=== PATIENT | female | born 1995 | race Two or more races ===

== ENCOUNTER 2024-05-10 08:01 | Emergency (ER) | payer MEDICAID, SELFPAY ==
[2024-05-10 08:02] VITALS: BMI 40.7
[2024-05-10 08:14] VITALS: BP 134/89; PULSE 102; RESP 19; TEMP 37.5; O2SAT 99
--- NOTE | 2024-05-10 08:16 | EDNOTE_ITS ---
ED SOB =RME/HPI General Chief Complaint: Shortness of Breath/Dyspnea Stated Complaint: PAIN WITH BREATHING TODAY Time Seen by Provider: 05/10/24 08:15 Source: patient Arrival date/time: 05/10/24 08:01 28-year-old female with a history of asthma presents to the emergency room with a chief complaint of cough, congestion, shortness of breath x 1 day Mode of arrival: ambulatory Limitations: no limitations Related Data Home Medications ?Medication ?Instructions ?Recorded ?Confirmed norethindrone acetate 1.5 1 tab PO QDAY 07/17/2307/16 mg-ethinyl estradiol 30 mcg tablet (Alex) Previous Rx's ?Medication ?Instructions ?Recorded albuterol sulfate 90 mcg/actuation 2 puff inhalation Q ID PRN 07/31/18 aerosol inhaler (Ventolin HFA) shortness of breath or wheezing #8.5 grams albuterol sulfate 90 mcg/actuation 2 puff inhalation Q ID PRN 06/16/20 aerosol inhaler shortness of breath or wheez ing #18 grams cetirizine 10 mg capsule (All Day 10 mg PO QDAY PRN al lergy symptoms 06/16/20 Allergy (cetirizine)) #30 caps sodium chloride 0.65 % nasal spray 2 spray intranasal QID #60 mL 06/16/20 aerosol (Saline Nasal) ondansetron 4 mg disintegrating 4 mg PO Q8H PRN nausea and 04/23/23 tablet vomiting #30 tabs albuterol sulfate 90 mcg/actuation 2 puff inhalation Q 6H PRN 01/08/24 aerosol inhaler (Ventolin HFA) shortness of breath or wheezing #8.5 grams promethazine-DM 6.25 mg-15 mg/5 mL 5 ml PO Q6H PRN cou gh #473 mL 01/08/24 oral syrup Allergies Allergy/AdvReac Type Severity Reaction Status Date / Time No Known Allergies Allergy Verified 05/10/24 08:04 Review of Systems Review of Systems Systems Reviewed: All systems reviewed, normal except as documented Constitutional Constitutional: Reports system reviewed and no additional complaints, except as documented, Denies fatigue, Denies fever(s), Denies headache(s) and Denies weakness Eyes Eyes: Reports system reviewed and no additional complaints, except as documented, Denies blurry vision and Denies change in vision ENT Ears, Nose, Mouth, and Throat: Reports system reviewed and no additional complaints, except as documented, Denies otalgia, Denies headache(s), Denies nasal congestion, Denies throat swelling and Denies vertigo Cardiovascular Cardiovascular: Reports system reviewed and no additional complaints, except as documented, Denies chest pain, Denies dyspnea and Denies dyspnea on exertion Respiratory Respiratory: Reports system reviewed and no additional complaints, except as documented, Reports chest congestion, Reports cough, Denies dyspnea, Denies dyspnea on exertion, Reports pain on inspiration and Denies wheezing Gastrointestinal Gastrointestinal: Reports system reviewed and no additional complaints, except as documented, Denies abdominal pain, Denies cramping, Denies nausea and Denies vomiting Genitourinary Genitourinary: Reports system reviewed and no additional complaints, except as documented Musculoskeletal Musculoskeletal: Reports system reviewed and no additional complaints, except as documented and Denies back pain Integumentary/Breasts Skin/Breast: Reports system reviewed and no additional complaints, except as documented and Denies wounds Neurologic Neurologic: Reports system reviewed and no additional complaints, except as documented, Denies confusion, Denies headache(s), Denies lack of coordination, Denies vertigo and Denies weakness Psychiatric Psychiatric: Reports system reviewed and no additional complaints, except as documented, Denies anxiety, Denies confusion, Denies depression, Denies paranoia, Denies suicidal ideation and Denies tactile hallucinations Endocrine Endocrine: Reports system reviewed and no additional complaints, except as documented and Denies fatigue Hematologic/Lymphatic Hematologic/Lymphatic: Reports system reviewed and no additional complaints, except as documented and Denies lymphadenopathy Allergic/Immunologic Allergic/Immunologic: Reports system reviewed and no additional complaints, except as documented, Denies throat swelling, Denies urticaria and Denies wheezing ED Exam General Limitations: Present no limitations General appearance: Present alert and in no apparent distress Head Head exam: Present atraumatic Eye Eye exam: Present normal appearance, PERRL and EOMI ENT ENT exam: Present normal exam, normal oropharynx and mucous membranes moist Neck Neck exam: Present normal inspection, full ROM and trachea midline Chest Chest inspection: Present normal inspection and symmetric chest wall rise Respiratory Respiratory exam: Present normal lung sounds bilaterally; Absent respiratory distress, wheezes, stridor, accessory muscle use or prolonged expiratory phase Cardiovascular Cardiovascular exam: Present regular rate, normal rhythm and normal heart sounds; Absent tachycardia Abdominal Exam Abdominal exam: Present soft and normal bowel sounds Extremities Exam Extremities exam: Present normal inspection and full ROM Back Exam Back exam: Present normal inspection and full ROM Neurological Exam Neurological exam: Present alert, oriented X3 and CN II-XII intact Psychiatric Psychiatric exam: Present normal affect and normal mood Skin Skin exam: Present warm, dry, intact and normal color Course Quality Measures none Orders Category Date Time Status Bedside COVID-19 Antigen Test NOW Care 05/10/24 08:16 Active Bedside Influenza A&B Antigen Test NOW Care 05/10/24 08:16 Completed XR chest 2V Stat Exams 05/10/24 08:16 Completed Vital Signs Vital signs: Vital Signs Temperature 99.5 F 05/10/24 08:14 Pulse Rate 102 H 05/10/24 08:14 Respiratory Rate 19 05/10/24 08:14 Blood Pressure 134/89 H 05/10/24 08:14 Pulse Oximetry (%) 99 05/10/24 08:14 Oxygen Delivery Method Room Air 05/10/24 08:14 O2 saturation 99% within normal limits Shortness of Breath / Dyspnea MDM Narrative MDM Narrative:: 28-year-old female with a history of asthma presents to the emergency room with a chief complaint of cough, congestion, shortness of breath x 1 day Patient is hemodynamically stable and in no apparent distress. Patient is not tachypneic, afebrile, O2 saturation is 99% on room air Physical examination shows clear bilateral lung sounds there is no wheezing or any abnormal breath sounds Chest x-ray was completed and was negative for any pneumonic infiltrates Patient was discharged and educated to follow-up with primary care provider in the next 24 to 48 hours and return to the emergency room for any evidence of worsening signs or symptoms Patient data External records reviewed:: [facility] previous records Clinical information provided by:: patient Social determinants that could affect healthcare access:: none Patient has the following chronic illnesses:: Asthma How is presenting disease/condition affected by chronic disease/condition?: exacerbated by Evaluation data The following diagnostics were reviewed and interpreted by me:: lab results and radiology exam(s) Lab and/or radiology exams considered but not ordered:: Labs and radiology exams considered and ordered Interpretation Summary: Chest [id number]: Lungs: Hypoinflated but clear. Pleura: No pneumothorax or pleural effusion. Cardiomediastinal Silhouette: Normal. Soft Tissues/Bones: Probable right upper quadrant surgical clips. IMPRESSION: Hypoinflated but clear lungs. Medications / Prescriptions Medications or Prescriptions considered but not ordered:: No medication given Medication administrations:: No medication given Consultations Consultation(s) initiated? (list below): No Diagnosis Shortness of Breath Differential Diagnosis: community acquired pneumonia, asthma with exacerbation and other (Influenza/COVID-19/upper respiratory infection) Most likely diagnosis given after review of the tests above:: Upper respiratory infection Admission Indicated Admission indicated?: not indicated Admission Request Was there a request for admission?: No Disposition Plan Disposition Plan: Discharge Discharge Attestation Discharge Attestation: The patient and all family members were given an opportunity to ask questions and understood the discharge instructions. Discharge instructions specifically effects, indications for sooner follow up or return to the emergency department, and the expected course of current diagnosis. Patient condition: Stable Discharge Plan Plan Patient Disposition: HOME (Self Care) Disposition Comment: Stable Prescriptions/Referrals Prescriptions/Med Rec: No Action albuterol sulfate [Ventolin HFA] 90 mcg/actuation HFA aerosol inhaler 2 puff INH QID PRN (Reason: shortness of breath or wheezing) Qty: 8.5 0RF albuterol sulfate 90 mcg/actuation HFA aerosol inhaler 2 puff inhalation QID PRN (Reason: shortness of breath or wheezing) Qty: 18 0RF All Day Allergy (cetirizine) 10 mg capsule 10 mg PO QDAY PRN (Reason: allergy symptoms) Qty: 30 0RF sodium chloride [Saline Nasal] 0.65 % aerosol,spray 2 spray intranasal QID Qty: 60 0RF ondansetron 4 mg tablet,disintegrating 4 mg PO Q8H PRN (Reason: nausea and vomiting) Qty: 30 0RF norethindrone ac-eth estradiol [Alex 1.07/30 (21)] 1.5-30 mg-mcg tablet 1 tab PO QDAY albuterol sulfate [Ventolin HFA] 90 mcg/actuation HFA aerosol inhaler 2 puff inhalation Q6H PRN (Reason: shortness of breath or wheezing) Qty: 8.5 0RF promethazine-DM 6.25-15 mg/5 mL syrup 5 ml PO Q6H PRN (Reason: cough) Qty: 473 0RF Referrals: Yash Melendez MD [Primary Care Provider] - In 1 week Problem List Clinical Impression: Upper respiratory infection, viral Patient/Caregiver Discharge Instructions Education Materials: ED URI, Viral, No Abx (Adult) Additional Instructions: Please follow-up with your primary care provider in the next 24 to 48 hours. You tested negative for influenza and COVID-19. Your chest x-ray was negative for any pneumonia. You have an upper respiratory infection that is viral. The treatment for this is symptom management. Please continue to take Tylenol and ibuprofen for fever management. Please increase your oral fluid intake. For any evidence of worsening signs or symptoms please return to the emergency room immediately Print Language: [place] Islander Stand Alone Forms: Lilian Award Info., Patient Portal Info Letter PA/CARLOS Supervising Physician PA/CARLOS Supervising Physician: Dr. Hernandez
--- NOTE | 2024-05-10 08:16 | XR_ITS ---
EXAMINATION: XR chest 2V ORDERING PROVIDER: CARLOS Ortega HISTORY: cough fever TECHNIQUE: PA and Lateral radiographs of the chest. COMPARISON: 01/08/2024, chest radiographs FINDINGS: Lungs: Hypoinflated but clear. Pleura: No pneumothorax or pleural effusion. Cardiomediastinal Silhouette: Normal. Soft Tissues/Bones: Probable right upper quadrant surgical clips. IMPRESSION: Hypoinflated but clear lungs.
== END 2024-05-10 09:38 | disposition home or self-care (01) ==
PROVIDERS: Emergency Provider Emergency Medicine; PCP Family Medicine
DX: J06.9 Acute upper respiratory infection, unspecified (principal); B97.89 Other viral agents as the cause of diseases classified elsewhere; J45.909 Unspecified asthma, uncomplicated
CPT/HCPCS: 71046; 87400; 87811; 99283

== ENCOUNTER 2024-09-17 02:35 | Emergency (ER) | payer MEDICAID, SELFPAY ==
[2024-09-17 02:36] VITALS: BMI 40.7
--- NOTE | 2024-09-17 02:44 | PD.EDABDPN ---
ED Abdominal Pain RME/HPI General Chief Complaint: Abdominal Pain Stated complaint: L FLANK PAIN Time seen by provider: 09/17/24 02:50 Arrival date/time: 09/17/24 02:35 RME / HPI RME / HPI narrative: This section includes all my notes and documentations, including HPI, PE, and ED course. Bakari Trevino MD HPI: 29yo female here with left flank pain for the last few days. Her pain has been progressively getting worse. Patient has nausea, dysuria, and hematuria. No vomiting. No other complaints reported. ROS: All negative except as documented in HPI. Physical Exam: General: Alert and oriented. No acute distress when remaining still. Eyes: Conjunctivae and lids clear. ENT: No nasal congestion. Neck: Supple. Heart: RRR. Lungs: No respiratory distress. Good air movement. No rhonchi, wheezing, rales. Abdomen: Soft and nontender. Normal bowel sounds. No distension. No rebound or guarding. Back: No CVA tenderness. Skin: Warm and dry. Neuro: Alert and oriented X 3. I reviewed all diagnostic test results. My review of the CT abdomen pelvis report is NAD. Blood tests are unremarkable. UA remarkable for positive leukocyte esterase, 5517 RBCs, and 16 WBCs. At this point, diagnoses include UTI. Treatment here included Toradol, Zofran, Rocephin, and NS. Significant improvement noted. Recommend outpatient management. Based on my best medical judgment, made decision no further evaluation or treatment indicated at this time. Patient understands and agrees to the discharge instructions customized and printed, see below. Discharge instructions from Dr. Trevino: 1. After evaluation, you have UTI (see attached handout). There is no kidney infection or kidney stone. 2. Take cefdinir to kill the germs causing the infection. Increase oral fluid to flush it out. Maintain clear urine. If dark or yellow, increase oral fluid. 3. Zofran for nausea/vomiting. Toradol for pain. 4. See a private doctor on 09/20/2024 for recheck. Ask to review all test results and official radiology reports, to make sure you receive all necessary follow-ups and monitoring, including final urine culture results from today. 5. Seek immediate medical care with worsening, fever, or with any concerns. Bakari Trevino MD Related Data Home Medications ?Medication ?Instructions ?Recorded ?Confirmed norethindrone acetate 1.5 1 tab PO QDAY 07/17/23 07/17/23 mg-ethinyl estradiol 30 mcg tablet (Alex) Previous Rx's ?Medication ?Instructions ?Recorded albuterol sulfate 90 mcg/actuation 2 puff inhalation QID PRN 07/31/18 aerosol inhaler (Ventolin HFA) shortness of breath or wheezing #8.5 grams albuterol sulfate 90 mcg/actuation 2 puff inhalation QID PRN 06/16/20 aerosol inhaler shortness of breath or wheezing #18 grams cetirizine 10 mg capsule (All Day 10 mg PO QDAY PRN allergy symptoms 06/16/20 Allergy (cetirizine)) #30 caps sodium chloride 0.65 % nasal spray 2 spray intranasal QID #60 mL 06/16/20 aerosol (Saline Nasal) ondansetron 4 mg disintegrating 4 mg PO Q8H PRN nausea and 04/23/23 tablet vomiting #30 tabs albuterol sulfate 90 mcg/actuation 2 puff inhalation Q6H PRN 01/08/24 aerosol inhaler (Ventolin HFA) shortness of breath or wheezing #8.5 grams promethazine-DM 6.25 mg-15 mg/5 mL 5 ml PO Q6H PRN cough #473 mL 01/08/24 oral syrup cefdinir 300 mg capsule 300 mg PO BID #14 caps 09/17/24 ketorolac 10 mg tablet 10 mg PO Q8H PRN pain 5 days #10 09/17/24 tabs ondansetron 4 mg disintegrating 4 mg PO TID PRN nausea and 09/17/24 tablet vomiting 30 days #10 tabs Allergies Allergy/AdvReac Type Severity Reaction Status Date / Time No Known Allergies Allergy Verified 09/17/24 02:39 Review of Systems Review of Systems Systems Reviewed: All systems reviewed, normal except as documented Past Medical History Past Medical History NEUROLOGIC: Negative Neurological Disorders or Migraine CARDIAC: Positive Hypercholesterolemia and Hypertension; Negative Cardiac Disorders or Congestive Heart Failure RESPIRATORY: Positive Asthma; Negative Chronic Obstructive Pulmonary Disease (COPD) GASTROINTESTINAL: Positive Gastrointestinal Disorders and Gastroesophageal Reflux Disease GENITOURINARY: Positive Genitourinary Disorders (recurrent UTIs); Negative Renal Disease MUSCULOSKELETAL: Negative Musculoskeletal Disorders ENDOCRINE: Positive Endocrine Disorders; Negative Diabetes Mellitus Type 1 or Diabetes Mellitus Type 2 HEMATOLOGIC: Negative Sickle Cell Disease PSYCHO/SOCIAL: Positive Anxiety (takes medication, will bring medication) OTHER HISTORY: Negative Autoimmune Disease, Anesthesia Reactions, Organ Transplant, MRSA or Cancer Family History FAMILY HISTORY: Positive Family Respiratory Disorders, Family Gastrointestinal Problems (GERD) and Family Cancer (lung cancer); Negative Family Psychiatric Problems, Family Cardiac Disorders, Family Surgery or Family Anesthesia Reaction Surgical History SURGICAL: Negative Ear Surgery, Nephrectomy, Joint Replacement, Amputation, Neurologic Surgery, Mastectomy or Organ Transplant Social History SMOKING STATUS: Never smoker SUBSTANCE USE: does not use ED Exam Narrative Physical exam: As noted in HPI. Course Quality Measures none Orders Category Date Time Status Saline [Insert IV] NOW Care 09/17/24 02:[address] abdomen pelvis wo con Stat Exams 09/17/24 02:53 Taken Bilirubin,Direct Stat Lab 09/17/24 02:58 Completed CBC Stat Lab 09/17/24 02:58 Completed CMP [Comprehensive Metabolic Panel] Stat Lab 09/17/24 02:58 Completed HCG Qualitative,Urine Stat Lab 09/17/24 02:52 Completed Magnesium Stat Lab 09/17/24 02:58 Completed UA [Urinalysis] Stat Lab 09/17/24 05:20 Received UA, C/S IF [Urinalysis, C/S if Indicated] Stat Lab 09/17/24 02:52 Completed Urine Culture Stat Lab 09/17/24 02:52 Received Ketorolac Inj [Toradol Inj] Med 09/17/24 02:52 Discontinued 30 mg IVP X1 ONE Ondansetron Inj [Zofran Inj] Med 09/17/24 02:52 Discontinued 4 mg IVP X1 ONE Sodium Chloride 0.9% 1000 ml [Ns] 1,000 ml Med 09/17/24 02:52 Discontinued IV 999 mls/hr Sodium Chloride 0.9% 1000 ml [Ns] 1,000 ml Med 09/17/24 04:34 Discontinued IV 999 mls/hr cefTRIAXone/D5w 1gm IV premix [Rocephin/D5w 1gm IV Med 09/17/24 04:27 Discontinued premix] 1 gm in 50 ml IV X1 cefTRIAXone/D5w 1gm IV premix [Rocephin/D5w 1gm IV Med 09/17/24 04:13 Discontinued premix] 50 ml IV X1 Vital Signs Vital signs: Vital Signs Temperature 98.7 F 09/17/24 02:49 Pulse Rate 106 H 09/17/24 02:49 Respiratory Rate 20 09/17/24 02:49 Blood Pressure 142/87 H 09/17/24 02:49 Pulse Oximetry (%) 97 09/17/24 02:49 Oxygen Delivery Method Room Air 09/17/24 02:49 Abdominal Pain MDM MDM Narrative MDM Narrative:: 29yo female here with left flank pain for the last few days. Her pain has been progressively getting worse. Patient has nausea, dysuria, and hematuria. No vomiting. No other complaints reported. Patient data External records reviewed:: [facility] previous records (Per chart review, patient was admitted here on 07/16/23 for gastroenteritis.) Clinical information provided by:: patient Social determinants that could affect healthcare access:: none Patient has the following chronic illnesses:: HTN, HLD How is presenting disease/condition affected by chronic disease/condition?: uneffected by Evaluation data The following diagnostics were reviewed and interpreted by me:: lab results and radiology exam(s) Lab and/or radiology exams considered but not ordered:: none Interpretation Summary: I reviewed all diagnostic test results. My review of the CT abdomen pelvis report is NAD. Blood tests are unremarkable. UA remarkable for positive leukocyte esterase, 5517 RBCs, and 16 WBCs. Medications / Prescriptions Medications or Prescriptions considered but not ordered:: none Medication administrations:: Medication Administration History Discontinued Medications Sodium Chloride (Ns) 1,000 mls @ 999 mls/hr IV .Q1H1M ONE Stop: 09/17/24 03:52 Last Infusion: 09/17/24 04:07 Dose: Infused Documented By: Admin: 09/17/24 03:14 Dose: 999 mls/hr Documented By: CVL Ceftriaxone Sodium/Dextrose (Rocephin/D5w 1gm Iv Premix) 50 mls @ 100 mls/hr IV X1 ONE Stop: 09/17/24 04:42 Ceftriaxone Sodium/Dextrose (Rocephin/D5w 1gm Iv Premix) 1 gm in 50 mls @ 100 mls/hr IV X1 ONE Stop: 09/17/24 04:56 Last Infusion: 09/17/24 05:27 Dose: Infused Documented By: Admin: 09/17/24 04:49 Dose: 100 mls/hr Documented By: CVL Sodium Chloride (Ns) 1,000 mls @ 999 mls/hr IV .Q1H1M ONE Stop: 09/17/24 05:34 Last Admin: 09/17/24 04:48 Dose: 999 mls/hr Documented By: CVL Ketorolac Tromethamine (Ketorolac Inj 30 Mg/Ml Vial) 30 mg IVP X1 ONE Stop: 09/17/24 02:53 Last Admin: 09/17/24 03:27 Dose: 30 mg Documented By: CVL Ondansetron HCl (Ondansetron Inj 2 Mg/Ml Inj 2 Ml) 4 mg IVP X1 ONE; Protocol Stop: 09/17/24 02:53 Last Admin: 09/17/24 03:14 Dose: 4 mg Documented By: CVL Toradol, Zofran, Rocephin, NS Consultations Consultation(s) initiated? (list below): No Diagnosis Differential diagnosis abdominal pain: acute appendicitis, calculus of kidney, constipation and other (UTI) Most likely diagnosis given after review of the tests above:: UTI Admission Indicated Admission indicated?: not indicated Explain why admission is indicated or not indicated:: With significant improvement and no condition needing emergent intervention, there was no indication for admission. Admission Request Was there a request for admission?: No Disposition Plan Disposition Plan: Discharge Discharge Attestation Discharge Attestation: The patient and all family members were given an opportunity to ask questions and understood the discharge instructions. Discharge instructions specifically effects, indications for sooner follow up or return to the emergency department, and the expected course of current diagnosis. Patient condition: Stable Discharge Plan Plan Patient Disposition: HOME (Self Care) Prescriptions/Referrals Prescriptions/Med Rec: New ketorolac 10 mg tablet 10 mg PO Q8H PRN (Reason: pain) 5 Days Qty: 10 0RF ondansetron 4 mg tablet,disintegrating 4 mg PO TID PRN (Reason: nausea and vomiting) 30 Days Qty: 10 0RF cefdinir 300 mg capsule 300 mg PO BID Qty: 14 0RF No Action albuterol sulfate [Ventolin HFA] 90 mcg/actuation HFA aerosol inhaler 2 puff INH QID PRN (Reason: shortness of breath or wheezing) Qty: 8.5 0RF albuterol sulfate 90 mcg/actuation HFA aerosol inhaler 2 puff inhalation QID PRN (Reason: shortness of breath or wheezing) Qty: 18 0RF All Day Allergy (cetirizine) 10 mg capsule 10 mg PO QDAY PRN (Reason: allergy symptoms) Qty: 30 0RF sodium chloride [Saline Nasal] 0.65 % aerosol,spray 2 spray intranasal QID Qty: 60 0RF ondansetron 4 mg tablet,disintegrating 4 mg PO Q8H PRN (Reason: nausea and vomiting) Qty: 30 0RF norethindrone ac-eth estradiol [Alex 1.5/30 (21)] 1.5-30 mg-mcg tablet 1 tab PO QDAY albuterol sulfate [Ventolin HFA] 90 mcg/actuation HFA aerosol inhaler 2 puff inhalation Q6H PRN (Reason: shortness of breath or wheezing) Qty: 8.5 0RF promethazine-DM 6.25-15 mg/5 mL syrup 5 ml PO Q6H PRN (Reason: cough) Qty: 473 0RF Referrals: No Primary/Family,Physician [Primary Care Provider] - In 1 week Problem List Clinical Impression: UTI (urinary tract infection) Patient/Caregiver Discharge Instructions Discharge Activity: activity as tolerated Education Materials: ED CYSTITIS Female Adult Additional Instructions: Discharge instructions from Dr. Trevino: 1. After evaluation, you have UTI (see attached handout).? There is no kidney infection or kidney stone. 2. Take cefdinir to kill the germs causing the infection.? Increase oral fluid to flush it out.? Maintain clear urine.? If dark or yellow, increase oral fluid. 3. Zofran for nausea/vomiting.? Toradol for pain. 4. See a private doctor on 09/20/2024 for recheck.? Ask to review all test results and official radiology reports, to make sure you receive all necessary follow-ups and monitoring, including final urine culture results from today. 5. Seek immediate medical care with worsening, fever, or with any concerns. Print Language: [place] Stand Alone Forms: Lilian Award Info., Patient Portal Info Letter
[2024-09-17 02:49] VITALS: BP 142/87; PULSE 106; RESP 20; TEMP 37.1; O2SAT 97
--- NOTE | 2024-09-17 02:53 | XR_ITS ---
Examination: CT abdomen and pelvis without contrast. Coronal 3-D reconstructions. Sagittal 2-D reconstructions. Date and time of exam:September 17, 2024, 0345 hours Comparison July 16, 2023. INDICATIONS: Left flank pain beginning 2 days ago. CTDI: vol (mGy): 13.8. DLP: (mGycm): 889. Technique: Axial images of the abdomen have been obtained, 3 mm slice thickness Intravenous contrast material has not been administered. Low dose protocols were performed. One or more of the following dose reduction techniques were used; automated exposure control, adjustment of the mA and/or KV according to patient size, use of iterative reconstruction technique. Findings: No focal liver or splenic lesions Absent gallbladder No pancreatic or adrenal mass No renal or ureteral calculi, no hydronephrosis Normal appendix No bowel obstruction Anteverted uterus, no pelvic mass No bladder mass or bladder calculi The osseous structures are intact IMPRESSION: No acute process in the abdomen or pelvis
[2024-09-17 02:56] LABS: Collection Type, Urine Clean Catch
[2024-09-17] MEDS: SODIUM CHLORIDE 0.9% 1000 ML 1,000 ML 999 ML IV ×2 (03:14→04:48)
[2024-09-17] MEDS: ONDANSETRON INJ 2 MG/ML INJ 2 ML 4 MG IVP (03:14)
[2024-09-17 03:17] LABS: HCG Qualitative,Urine Negative
[2024-09-17] MEDS: KETOROLAC INJ 30 MG/ML VIAL IVP (03:27)
[2024-09-17 03:35] LABS: Basophils # (Auto) 0.0 Thou/mm3 (0.0-0.2); Basophils % (Auto) 0 % (0-2.5); Eosinophils # (Auto) 0.0 Thou/mm3 (0.0-0.5); Eosinophils % (Auto) 1 % (0-10); Hematocrit 42.5 % (36.0-46.0); Hemoglobin 15.1 g/dL (12.0-16.0); Immature Granulocytes Auto 0.02 Thou/mm3 (0.00-0.00); Lymphocytes # (Auto) 2.5 Thou/mm3 (1.0-4.8); Lymphocytes % (Auto) 32 % (10-50); Mean Corpuscular HGB Conc 35.5 g/dl (31.0-37.0); Mean Corpuscular Hemoglobin 30.1 pg (25.0-35.0); Mean Corpuscular Volume 85 fL (80-100); Monocytes # (Auto) 0.6 Thou/mm3 (0.0-0.8); Monocytes % (Auto) 7 % (0-12); Neutrophils # (Auto) 4.7 Thou/mm3 (1.8-7.7); Neutrophils % (Auto) 60 % (37-80); Nucleated Red Blood Cell # 0.00 Thou/mm3 (0.00-0.00); Nucleated Red Blood Cell % 0 /100 WBC (0); Platelet Count 336 Thou/mm3 (140-440); RDW Standard Deviation 41.0 fL (36.4-46.3); Red Blood Count 5.01 Miln/mm3 (4.00-5.20); White Blood Count 7.8 Thou/mm3 (3.6-11.0)
[2024-09-17 03:43] LABS: Bilirubin,Urine Negative (Negative); Blood,Urine 3+ (Negative); Color,Urine Dark-Brown (Lt Yel-Yel); Glucose, Urine Negative (Negative); Ketones,Urine 1+ (Negative); Leukocyte Esterase,Urine Positive (Negative); Nitrite,Urine Negative (Negative); PH,Urine 6.0 (5.0-7.0); Protein,Urine 1+ (Neg - Trace); RBC,Urine 5517 /hpf (0-3); Specific Gravity,Urine 1.029 (1.001-1.035); Squamous Epithelial Cell,Urine 7 /hpf (0-5); Urobilinogen,Urine Negative mg/dL (0.0-1.0); WBC,Urine 16 /hpf (0-5)
[2024-09-17 03:48] LABS: Alanine Aminotransferase 15 U/L (10-49); Albumin, Serum 4.6 gm/dL (3.5-5.0); Albumin/Globulin Ratio 1.2 (1.2-2.2); Alkaline Phosphatase 62 U/L (46-116); Anion Gap 10 (7-16); Aspartate Amino Transferase 21 U/L (0-34); BUN/Creatinine Ratio 10 Ratio (12-20); Bilirubin,Direct 0.1 mg/dL (0.0-0.3); Bilirubin,Total 0.4 mg/dL (0.3-1.2); Blood Urea Nitrogen 9 mg/dL (9-23); Calcium 9.7 mg/dL (8.3-10.6); Calcium (Corrected) 9.7 mg/dL (8.5-10.1); Carbon Dioxide 22.7 mMol/L (20.0-31.0); Chloride 106 mMol/L (98-107); Creatinine (Component) 0.9 mg/dL (0.6-1.3); Estimated Creatinine Clearance 123.6 mL/min (>60); Globulin 3.8 gm/dL (2.3-3.5); Glucose 102 mg/dL (74-106); Magnesium 2.0 mg/dL (1.6-2.6); Osmolality,Calculated 276 (275-295); Potassium 3.9 mMol/L (3.4-5.1); Sodium 139 mMol/L (136-145); Total Protein 8.4 gm/dL (5.7-8.2); eGFR > 60 See Note
[2024-09-17 04:09] LABS: Clarity,Urine Turbid (Clear/Hazy); Culture Indicated,Urine Yes
[2024-09-17] MEDS: cefTRIAXone/D5w 1gm IV premix 1 GM/50 ML BAG IV (04:49)
[2024-09-17 04:53] VITALS: BP 115/74; PULSE 70; RESP 20; O2SAT 96
--- NOTE | 2024-09-17 05:07 | PRELIM_ITS ---
CT scan of the abdomen and pelvis without intravenous contrast (axial sections with sagittal and coronal reformats) September 17, 2024 0345 hours Clinical History: Left flank pain. Comparison: CT of July 16, 2023. Findings: The lung bases are clear. The pancreas, spleen and adrenals are unremarkable on this noncontrast study. No evidence of renal/ureteric calculus or hydroureteronephrosis. Status post cholecystectomy. Hepatomegaly. No evidence of bowel obstruction. No evidence of appendicitis. There is no mesenteric or retroperitoneal adenopathy. The urinary bladder is nondistended, limited evaluation. There is no free fluid or free air. The osseous structures are unremarkable. The uterus and ovaries are within normal limits. Impression: Hepatomegaly. No evidence of renal/ureteric calculus or hydroureteronephrosis. Report Electronically Signed By: Jose Daley 09/17/2024 5:06:44 AM [EST]
[2024-09-17 06:22] VITALS: RESP 16
== END 2024-09-17 06:23 | disposition home or self-care (01) ==
PROVIDERS: Emergency Provider Emergency Medicine
DX: N39.0 Urinary tract infection, site not specified (principal); R16.0 Hepatomegaly, not elsewhere classified
CPT/HCPCS: 36415; 74176; 80053; 81001; 81025; 82248; 83735; 85025; 87086; 96361; 96365; 96375; 99283; J0696; J1885; J2405; J7030

== ENCOUNTER 2025-02-01 03:00 | Emergency (ER) | payer MEDICAID, SELFPAY ==
[2025-02-01 03:02] VITALS: BMI 40.2
[2025-02-01 03:05] VITALS: BP 139/92; PULSE 112; RESP 19; TEMP 36.8; O2SAT 98
--- NOTE | 2025-02-01 03:06 | XR_ITS ---
Examination: CT abdomen and pelvis without contrast. Coronal 3-D reconstructions. Sagittal 2-D reconstructions. Date and time of exam: February 01, 2025, 0725 hours, comparison September 17, 2024 INDICATIONS: Left-sided abdominal pain today CTDI: vol (mGy): 14.1 DLP: (mGycm): 903 Technique: Axial images of the abdomen have been obtained, 3 mm slice thickness Intravenous contrast material has not been administered. Low dose protocols were performed. One or more of the following dose reduction techniques were used; automated exposure control, adjustment of the mA and/or KV according to patient size, use of iterative reconstruction technique. Findings: No focal liver or splenic lesion Absent gallbladder No pancreatic or adrenal mass No renal or ureteral calculi, no hydronephrosis Aorta normal size Normal appendix No bowel obstruction No diverticulitis Mild to moderate disc narrowing L5-S1 No adnexal mass No bladder mass or bladder calculi IMPRESSION: No renal or ureteral calculi, no hydronephrosis Normal appendix No bowel obstruction diverticulitis or free air
[2025-02-01 03:39] LABS: Basophils # (Auto) 0.0 Thou/mm3 (0.0-0.2); Basophils % (Auto) 0 % (0-2.5); Eosinophils # (Auto) 0.1 Thou/mm3 (0.0-0.5); Eosinophils % (Auto) 0 % (0-10); Hematocrit 42.2 % (36.0-46.0); Hemoglobin 14.0 g/dL (12.0-16.0); Immature Granulocytes Auto 0.04 Thou/mm3 (0.00-0.00); Lymphocytes # (Auto) 0.9 Thou/mm3 (1.0-4.8); Lymphocytes % (Auto) 7 % (10-50); Mean Corpuscular HGB Conc 33.2 g/dl (31.0-37.0); Mean Corpuscular Hemoglobin 29.7 pg (25.0-35.0); Mean Corpuscular Volume 89 fL (80-100); Monocytes # (Auto) 0.5 Thou/mm3 (0.0-0.8); Monocytes % (Auto) 4 % (0-12); Neutrophils # (Auto) 12.2 Thou/mm3 (1.8-7.7); Neutrophils % (Auto) 89 % (37-80); Nucleated Red Blood Cell # 0.00 Thou/mm3 (0.00-0.00); Nucleated Red Blood Cell % 0 /100 WBC (0); Platelet Count 266 Thou/mm3 (140-440); RDW Standard Deviation 41.9 fL (36.4-46.3); Red Blood Count 4.72 Miln/mm3 (4.00-5.20); White Blood Count 13.8 Thou/mm3 (3.6-11.0)
[2025-02-01 04:06] LABS: Alanine Aminotransferase 17 U/L (10-49); Albumin, Serum 4.6 gm/dL (3.5-5.0); Alkaline Phosphatase 72 U/L (46-116); Anion Gap 10 (7-16); Aspartate Amino Transferase 20 U/L (0-34); BUN/Creatinine Ratio 12 Ratio (12-20); Bilirubin,Total 0.6 mg/dL (0.3-1.2); Blood Urea Nitrogen 12 mg/dL (9-23); Calcium 9.5 mg/dL (8.3-10.6); Calcium (Corrected) 9.5 mg/dL (8.5-10.1); Carbon Dioxide 25.4 mMol/L (20.0-31.0); Chloride 105 mMol/L (98-107); Creatinine (Component) 1.0 mg/dL (0.6-1.3); Estimated Creatinine Clearance 110.5 mL/min (>60); Glucose 120 mg/dL (74-106); Lipase 26 U/L (12-53); Osmolality,Calculated 280 (275-295); Potassium 4.0 mMol/L (3.4-5.1); Sodium 140 mMol/L (136-145); eGFR > 60 See Note
[2025-02-01] MEDS: HYDROcodone/APAP 5/325 TABLET 1 TAB PO (04:07)
[2025-02-01] MEDS: ONDANSETRON ODT 4 MG TABRAP PO (04:07)
[2025-02-01 05:16] LABS: Collection Type, Urine Clean Catch
--- NOTE | 2025-02-01 05:38 | PD.EDRME ---
Rapid Medical Screening Exam RME Arrival date/time: 02/01/25 03:00 This is a case of 29-year-old female who came into the emergency room due to abdominal pain nausea vomiting for 2 days persistence of the symptoms this patient decided to sought consult here in the emergency room Chief Complaint: Nausea/Vomiting/Diarrhea Time Seen by Provider: 02/01/25 03:02 Vital signs: Vital Signs Temperature 98.2 F 02/01/25 03:05 Pulse Rate 112 H 02/01/25 03:05 Respiratory Rate 19 02/01/25 03:05 Blood Pressure 139/92 H 02/01/25 03:05 Pulse Oximetry (%) 98 02/01/25 03:05 Oxygen Delivery Method Room Air 02/01/25 03:05 Exam: Abdominal exam mild tenderness both upper abdomen no guarding no rebound no rigidity Clinical Impression: Abdominal pain nausea vomiting
[2025-02-01 06:41] LABS: HCG Qualitative,Urine Negative
[2025-02-01 06:55] LABS: Bacteria,Urine Rare; Bilirubin,Urine Negative (Negative); Blood,Urine 3+ (Negative); Clarity,Urine Turbid (Clear/Hazy); Color,Urine Yellow (Lt Yel-Yel); Glucose, Urine Negative (Negative); Hyaline Casts,Urine < 1 /hpf (0-1); Ketones,Urine Negative (Negative); Leukocyte Esterase,Urine Positive (Negative); Nitrite,Urine Negative (Negative); PH,Urine 6.0 (5.0-7.0); Protein,Urine Trace (Neg - Trace); RBC,Urine 5 /hpf (0-3); Specific Gravity,Urine 1.028 (1.001-1.035); Squamous Epithelial Cell,Urine 39 /hpf (0-5); Urobilinogen,Urine Negative mg/dL (0.0-1.0); WBC,Urine 30 /hpf (0-5)
--- NOTE | 2025-02-01 08:49 | EDNOTE_ITS ---
<Statement entered by Keya Adams MD - 02/12/25 06:31> As co-signing physician, I was present and available for consult prn. I concur with the plan and care as documented by the midlevel provider. Nausea/Vomit./Diarrhea-RME/HPI General Chief complaint: Nausea/Vomiting/Diarrhea Stated complaint: VOMITING Time Seen by Provider: 02/01/25 03:02 Arrival date/time: 02/01/25 03:00 29-year-old female presents to the emergemcy department today for complaints of left-sided abdominal pain ongoing for last couple days patient reports nausea vomiting and diarrhea Limitations: no limitations RME / HPI RME / HPI Narrative: 02/01/25 03:00 This is a case of 29-year-old female who came into the emergency room due to abdominal pain nausea vomiting for 2 days persistence of the symptoms this patient decided to sought consult here in the emergency room Exam: Abdominal exam mild tenderness both upper abdomen no guarding no rebound no rigidity Impression: Abdominal pain nausea vomiting Related Data Home Medications ?Medication ?Instructions ?Recorded ?Confirmed norethindrone acetate 1.5 1 tab PO QDAY 07/17/2307/16 mg-ethinyl estradiol 30 mcg tablet (Alex) Previous Rx's ?Medication ?Instructions ?Recorded albuterol sulfate 90 mcg/actuation 2 puff inhalation Q ID PRN 07/31/18 aerosol inhaler (Ventolin HFA) shortness of breath or wheezing #8.5 grams albuterol sulfate 90 mcg/actuation 2 puff inhalation Q ID PRN 06/16/20 aerosol inhaler shortness of breath or wheez ing #18 grams cetirizine 10 mg capsule (All Day 10 mg PO QDAY PRN al lergy symptoms 06/16/20 Allergy (cetirizine)) #30 caps sodium chloride 0.65 % nasal spray 2 spray intranasal QID #60 mL 06/16/20 aerosol (Saline Nasal) ondansetron 4 mg disintegrating 4 mg PO Q8H PRN nausea and 04/23/23 tablet vomiting #30 tabs albuterol sulfate 90 mcg/actuation 2 puff inhalation Q 6H PRN 01/08/24 aerosol inhaler (Ventolin HFA) shortness of breath or wheezing #8.5 grams promethazine-DM 6.25 mg-15 mg/5 mL 5 ml PO Q6H PRN cou gh #473 mL 01/08/24 oral syrup cefdinir 300 mg capsule 300 mg PO BID #14 caps 09/17 loperamide 2 mg capsule (Imodium 2 mg PO Q6H PRN loose stool #14 02/01/25 A-D) caps metoclopramide HCl 10 mg tablet 10 mg PO Q6H PRN nause a and 02/01/25 (Reglan) vomiting #30 tabs Allergies Allergy/AdvReac Type Severity Reaction Status Date / Time No Known Allergies Allergy Verified 02/01/25 03:01 Review of Systems Review of Systems Systems Reviewed: All systems reviewed, normal except as documented Constitutional Constitutional: Reports system reviewed and no additional complaints, except as documented, Denies fever(s) and Denies headache(s) Eyes Eyes: Reports system reviewed and no additional complaints, except as documented and Denies blurry vision ENT Ears, Nose, Mouth, and Throat: Reports system reviewed and no additional complaints, except as documented, Denies headache(s), Denies nasal congestion and Denies nasal discharge Cardiovascular Cardiovascular: Reports system reviewed and no additional complaints, except as documented, Denies chest pain and Denies dyspnea Respiratory Respiratory: Reports system reviewed and no additional complaints, except as documented, Denies chest congestion, Denies cough and Denies dyspnea Gastrointestinal Gastrointestinal: Reports system reviewed and no additional complaints, except as documented and Reports abdominal pain Integumentary/Breasts Skin/Breast: Reports system reviewed and no additional complaints, except as documented and Denies rash Neurologic Neurologic: Reports system reviewed and no additional complaints, except as documented, Reports as per HPI and Denies headache(s) Past Medical History Past Medical History NEUROLOGIC: Negative Neurological Disorders or Migraine CARDIAC: Positive Hypercholesterolemia and Hypertension; Negative Cardiac Disorders or Congestive Heart Failure RESPIRATORY: Positive Asthma; Negative Chronic Obstructive Pulmonary Disease (COPD) GASTROINTESTINAL: Positive Gastrointestinal Disorders and Gastroesophageal Reflux Disease GENITOURINARY: Positive Genitourinary Disorders; Negative Renal Disease MUSCULOSKELETAL: Negative Musculoskeletal Disorders ENDOCRINE: Positive Endocrine Disorders; Negative Diabetes Mellitus Type 1 or Diabetes Mellitus Type 2 HEMATOLOGIC: Negative Sickle Cell Disease PSYCHO/SOCIAL: Positive Anxiety OTHER HISTORY: Negative Autoimmune Disease, Anesthesia Reactions, Organ Transplant, MRSA or Cancer Family History FAMILY HISTORY: Positive Family Respiratory Disorders, Family Gastrointestinal Problems and Family Cancer; Negative Family Psychiatric Problems, Family Cardiac Disorders, Family Surgery or Family Anesthesia Reaction Surgical History SURGICAL: Negative Ear Surgery, Nephrectomy, Joint Replacement, Amputation, Neurologic Surgery, Mastectomy or Organ Transplant Social History SMOKING STATUS: Never smoker SUBSTANCE USE: does not use ED Exam General Limitations: Present no limitations General appearance: Present alert and in no apparent distress Head Head exam: Present atraumatic Eye Eye exam: Present normal appearance, PERRL and EOMI ENT ENT exam: Present normal exam, normal oropharynx and mucous membranes moist Neck Neck exam: Present normal inspection, full ROM and trachea midline Chest Chest inspection: Present normal inspection and symmetric chest wall rise Respiratory Respiratory exam: Present normal lung sounds bilaterally Cardiovascular Cardiovascular exam: Present regular rate, normal rhythm and normal heart sounds Abdominal Exam Abdominal exam: Present soft, tenderness (Left-sided abdominal pain) and normal bowel sounds; Absent distention, guarding, rebound, rigidity, Arevalo's sign, Rovsing's sign or tenderness at McBurney's Point Abdominal tenderness: Absent RUQ or RLQ Extremities Exam Extremities exam: Present normal inspection and full ROM Back Exam Back exam: Present normal inspection and full ROM Neurological Exam Neurological exam: Present alert, oriented X3 and CN II-XII intact Psychiatric Psychiatric exam: Present normal affect and normal mood Skin Skin exam: Present warm, dry, intact and normal color Course Quality Measures none Orders Category Date Time Status CT abdomen pelvis wo con Stat Exams 02/01/25 03:06 Completed CBC Stat Lab 02/01/25 03:18 Completed Comprehensive Metabolic Panel Stat Lab 02/01/25 03:18 Results HCG Qualitative,Urine Stat Lab 02/01/25 05:11 Completed Lipase Stat Lab 02/01/25 03:18 Results Urinalysis Stat Lab 02/01/25 05:11 Completed HYDROcodone*/APAP 5/325 [Horicon 5/325] Med 02/01/25 03:06 Discontinued 1 tab PO X1 ONE Ondansetron Odt [Zofran Odt] Med 02/01/25 03:06 Discontinued 4 mg PO X1 ONE Vital Signs Vital signs: Vital Signs Temperature 98.2 F 02/01/25 03:05 Pulse Rate 112 H 02/01/25 03:05 Respiratory Rate 19 02/01/25 03:05 Blood Pressure 139/92 H 02/01/25 03:05 Pulse Oximetry (%) 98 02/01/25 03:05 Oxygen Delivery Method Room Air 02/01/25 03:05 O2 saturation 98% on room air within normal limits Nausea/Vomiting/Diarrhea MDM Narrative MDM Narrative:: 29-year-old female presents to the emergency department today for complaints of left-sided abdominal pain ongoing for last couple days patient reports nausea vomiting and diarrhea On exam patient does not appear toxic no distress Lab work and imaging obtained no acute emergent findings noted Patient reports no hematuria or dysuria Symptoms consistent with viral gastroenteritis Patient discharged home in no distress to follow-up with primary care doctor in the next 24 to 48 hours and for any worsening symptoms to return to the ER immediately Patient data External records reviewed:: [facility] previous records Clinical information provided by:: patient Social determinants that could affect healthcare access:: none Patient has the following chronic illnesses:: none How is presenting disease/condition affected by chronic disease/condition?: no chronic disease Evaluation data The following diagnostics were reviewed and interpreted by me:: lab results and radiology exam(s) Lab and/or radiology exams considered but not ordered:: Labs radiology obtained Interpretation Summary: given Medications / Prescriptions Medications / Prescriptions considered but not ordered:: given Medication administrations:: Medication Administration History Discontinued Medications Hydrocodone Bitart/Acetaminophen (Hydrocodone/Apap 5/325 Tablet) 1 tab PO X1 ONE Stop: 02/01/25 03:07 Last Admin: 02/01/25 04:07 Dose: 1 tab Documented By: CVL Ondansetron HCl (Ondansetron Odt 4 Mg Tabrap) 4 mg PO X1 ONE; Protocol Stop: 02/01/25 03:07 Last Admin: 02/01/25 04:07 Dose: 4 mg Documented By: CVL given Consultations Consultation(s) initiated? (list below): No Diagnosis Nausea Differential Diagnosis: food poisoning, gastroenteritis and clostridium difficile infection Most likely diagnosis given after review of the tests above:: gastritis Admission Indicated Admission indicated?: not indicated Admission Request Was there a request for admission?: No Disposition Plan Disposition Plan: Discharge Discharge Attestation Discharge Attestation: The patient and all family members were given an opportunity to ask questions a nd understood the discharge instructions. Discharge instructions specifically effects, indications for sooner follow up or return to the emergency department, and the expected course of current diagnosis. Patient condition: Stable Discharge Plan Plan Patient Disposition: HOME (Self Care) Discharge Disposition comment: Stable Prescriptions/Referrals Prescriptions/Med Rec: New loperamide [Imodium A-D] 2 mg capsule 2 mg PO Q6H PRN (Reason: loose stool) Qty: 14 0RF metoclopramide HCl [Reglan] 10 mg tablet 10 mg PO Q6H PRN (Reason: nausea and vomiting) Qty: 30 0RF No Action albuterol sulfate [Ventolin HFA] 90 mcg/actuation HFA aerosol inhaler 2 puff INH QID PRN (Reason: shortness of breath or wheezing) Qty: 8.5 0RF albuterol sulfate 90 mcg/actuation HFA aerosol inhaler 2 puff inhalation QID PRN (Reason: shortness of breath or wheezing) Qty: 18 0RF All Day Allergy (cetirizine) 10 mg capsule 10 mg PO QDAY PRN (Reason: allergy symptoms) Qty: 30 0RF sodium chloride [Saline Nasal] 0.65 % aerosol,spray 2 spray intranasal QID Qty: 60 0RF ondansetron 4 mg tablet,disintegrating 4 mg PO Q8H PRN (Reason: nausea and vomiting) Qty: 30 0RF norethindrone ac-eth estradiol [Alex 1.5/30 (21)] 1.5-30 mg-mcg tablet 1 tab PO QDAY albuterol sulfate [Ventolin HFA] 90 mcg/actuation HFA aerosol inhaler 2 puff inhalation Q6H PRN (Reason: shortness of breath or wheezing) Qty: 8.5 0RF promethazine-DM 6.25-15 mg/5 mL syrup 5 ml PO Q6H PRN (Reason: cough) Qty: 473 0RF cefdinir 300 mg capsule 300 mg PO BID Qty: 14 0RF Referrals: Courtney Camargo, TRANS[employer] MIX OPERATOR-C [Primary Care Provider] - In 1 week Problem List Clinical Impression: Abdominal pain, Nausea vomiting and diarrhea Patient/Caregiver Discharge Instructions Education Materials: Abdominal Pain Additional Instructions: Please follow up with your primary care doctor in the next 24-48hrs for any worsening symptoms return here immediately Print Language: Indonesian Stand Alone Forms: Lilian Award Info., Patient Portal Info Letter PA/TRANSIT MIX OPERATOR Supervising Physician PA/TRANSIT MIX OPERATOR Supervising Physician: dr adams
[2025-02-01 13:07] LABS: Albumin/Globulin Ratio 1.2 (1.2-2.2); Globulin 3.8 gm/dL (2.3-3.5); Total Protein 8.4 gm/dL (5.7-8.2)
== END 2025-02-01 09:01 | disposition home or self-care (01) ==
PROVIDERS: Nurse Practitioner Family; Emergency Provider Emergency Medicine
DX: R11.2 Nausea with vomiting, unspecified (principal); R19.7 Diarrhea, unspecified; R10.9 Unspecified abdominal pain
CPT/HCPCS: 36415; 74176; 80053; 81001; 81025; 83690; 85025; 99283; Q0162; A9270

== ENCOUNTER 2025-02-10 01:54 | Emergency (ER) | payer MEDICAID, SELFPAY ==
[2025-02-10 01:54] VITALS: BP 151/94; PULSE 98; RESP 17; TEMP 37; O2SAT 95; BMI 40.7
[2025-02-10] MEDS: ALBUTEROL/IPRATROPIUM (Duoneb) RT SOL 3 ML NEBU INH (02:59)
[2025-02-10 03:00] VITALS: PULSE 104; RESP 22; O2SAT 99
[2025-02-10 03:39] VITALS: BP 123/80; PULSE 87; RESP 18; TEMP 36.9; O2SAT 97
--- NOTE | 2025-02-10 04:03 | PD.ASTHM ---
ED Asthma RME/HPI General Chief Complaint: Shortness of Breath/Dyspnea Stated Complaint: SHORTNESS OF BREATH Time Seen by Provider: 02/10/25 02:13 Arrival date/time: 02/10/25 01:54 29/F with history of asthma presents to ED with several hours of SOB. Patient denies fevers/chills and leg swelling. Limitations: no limitations Related Data Home Medications ?Medication ?Instructions ?Recorded ?Confirmed norethindrone acetate 1.5 1 tab PO QDAY 07/17/23 07/17/23 mg-ethinyl estradiol 30 mcg tablet (Alex) Previous Rx's ?Medication ?Instructions ?Recorded albuterol sulfate 90 mcg/actuation 2 puff inhalation QID PRN 07/31/18 aerosol inhaler (Ventolin HFA) shortness of breath or wheezing #8.5 grams albuterol sulfate 90 mcg/actuation 2 puff inhalation QID PRN 06/16/20 aerosol inhaler shortness of breath or wheezing #18 grams cetirizine 10 mg capsule (All Day 10 mg PO QDAY PRN allergy symptoms 06/16/20 Allergy (cetirizine)) #30 caps sodium chloride 0.65 % nasal spray 2 spray intranasal QID #60 mL 06/16/20 aerosol (Saline Nasal) ondansetron 4 mg disintegrating 4 mg PO Q8H PRN nausea and 04/23/23 tablet vomiting #30 tabs albuterol sulfate 90 mcg/actuation 2 puff inhalation Q6H PRN 01/08/24 aerosol inhaler (Ventolin HFA) shortness of breath or wheezing #8.5 grams promethazine-DM 6.25 mg-15 mg/5 mL 5 ml PO Q6H PRN cough #473 mL 01/08/24 oral syrup cefdinir 300 mg capsule 300 mg PO BID #14 caps 09/17/24 loperamide 2 mg capsule (Imodium 2 mg PO Q6H PRN loose stool #14 02/01/25 A-D) caps metoclopramide HCl 10 mg tablet 10 mg PO Q6H PRN nausea and 02/01/25 (Reglan) vomiting #30 tabs prednisone 50 mg tablet 50 mg PO QDAY 4 days #4 tabs 02/10/25 Allergies Allergy/AdvReac Type Severity Reaction Status Date / Time No Known Allergies Allergy Verified 02/01/25 03:01 Review of Systems Review of Systems Systems Reviewed: All systems reviewed, normal except as documented Cardiovascular Cardiovascular: Reports dyspnea Respiratory Respiratory: Reports as per HPI and Reports dyspnea Past Medical History Past Medical History NEUROLOGIC: Negative Neurological Disorders or Migraine CARDIAC: Positive Hypercholesterolemia and Hypertension; Negative Cardiac Disorders or Congestive Heart Failure RESPIRATORY: Positive Asthma; Negative Chronic Obstructive Pulmonary Disease (COPD) GASTROINTESTINAL: Positive Gastrointestinal Disorders and Gastroesophageal Reflux Disease GENITOURINARY: Positive Genitourinary Disorders; Negative Renal Disease MUSCULOSKELETAL: Negative Musculoskeletal Disorders ENDOCRINE: Positive Endocrine Disorders; Negative Diabetes Mellitus Type 1 or Diabetes Mellitus Type 2 HEMATOLOGIC: Negative Sickle Cell Disease PSYCHO/SOCIAL: Positive Anxiety OTHER HISTORY: Negative Autoimmune Disease, Anesthesia Reactions, Organ Transplant, MRSA or Cancer Family History FAMILY HISTORY: Positive Family Respiratory Disorders, Family Gastrointestinal Problems and Family Cancer; Negative Family Psychiatric Problems, Family Cardiac Disorders, Family Surgery or Family Anesthesia Reaction Surgical History SURGICAL: Negative Ear Surgery, Nephrectomy, Joint Replacement, Amputation, Neurologic Surgery, Mastectomy or Organ Transplant Social History SMOKING STATUS: Never smoker SUBSTANCE USE: does not use ED Exam General Limitations: Present no limitations General appearance: Present alert and in no apparent distress Head Head exam: Present atraumatic Neck Neck exam: Present normal inspection, full ROM and trachea midline Chest Chest inspection: Present normal inspection and symmetric chest wall rise Respiratory Respiratory exam: Present normal lung sounds bilaterally and prolonged expiratory phase Neurological Exam Neurological exam: Present alert and oriented X3 Psychiatric Psychiatric exam: Present normal affect and normal mood Skin Skin exam: Present warm, dry, intact and normal color Course Quality Measures none Orders Category Date Time Status Albuterol/Ipratr Rt Carolann [Duoneb Rt Carolann] Med 02/10/25 02:38 Discontinued 3 ml INH X1 ONE dexAMETHasone INJ [Decadron Inj] Med 02/10/25 02:38 Discontinued 10 mg PO X1 ONE Vital Signs Vital signs: Vital Signs Temperature 98.6 F 02/10/25 01:54 Pulse Rate 98 02/10/25 01:54 Respiratory Rate 17 02/10/25 01:54 Blood Pressure 151/94 H 02/10/25 01:54 Pulse Oximetry (%) 95 02/10/25 01:54 Oxygen Delivery Method Room Air 02/10/25 01:54 Asthma MDM Narrative MDM Narrative:: 29/F with history of asthma presents to ED with several hours of SOB. Patient denies fevers/chills and leg swelling. Physical exam reveals prolonged expiration, but no obvious wheezing. Patient is afebrile, calm, and alert. Meds improved symptoms. Patient data External records reviewed:: [facility] previous records Clinical information provided by:: patient Social determinants that could affect healthcare access:: none Patient has the following chronic illnesses:: asthma How is presenting disease/condition affected by chronic disease/condition?: exacerbated by Evaluation data The following diagnostics were reviewed and interpreted by me:: other (specify) (none) Lab and/or radiology exams considered but not ordered:: not ordered Interpretation Summary: n/a Medications / Prescriptions Medications or Prescriptions considered but not ordered:: ordered Medication administrations:: Medication Administration History Discontinued Medications Albuterol/Ipratropium (Albuterol/Ipratropium (Duoneb) Rt Carolann 3 Ml Nebu) 3 ml INH X1 ONE Stop: 02/10/25 02:39 Last Admin: 02/10/25 02:59 Dose: 3 ml Documented By: MATT Dexamethasone Sodium Phosphate (Dexamethasone Sod Phos Inj 10 Mg/Ml Vial) 10 mg PO X1 ONE Stop: 02/10/25 02:39 Last Admin: 02/10/25 02:49 Dose: 10 mg Documented By: RC Consultations Consultation(s) initiated? (list below): No Diagnosis Differential diagnosis asthma: Acute exacerbation, Status asthmaticus, Acute asthmatic bronchitis, PE, Pneumonia, COPD exacerbation, Pulmonary edema systolic, Pulmonary edema dystolic, ARDS, Pneumothorax and Foreign body in trachea Most likely diagnosis given after review of the tests above:: asthma exacerbation Admission Indicated Admission indicated?: not indicated Admission Request Was there a request for admission?: No Disposition Plan Disposition Plan: Discharge Discharge Attestation Discharge Attestation: The patient and all family members were given an opportunity to ask questions and understood the discharge instructions. Discharge instructions specifically effects, indications for sooner follow up or return to the emergency department, and the expected course of current diagnosis. Patient condition: Stable Discharge Plan Plan Patient Disposition: HOME (Self Care) Discharge Disposition comment: Stable Prescriptions/Referrals Prescriptions/Med Rec: New prednisone 50 mg tablet 50 mg PO QDAY 4 Days Qty: 4 0RF No Action albuterol sulfate [Ventolin HFA] 90 mcg/actuation HFA aerosol inhaler 2 puff INH QID PRN (Reason: shortness of breath or wheezing) Qty: 8.5 0RF albuterol sulfate 90 mcg/actuation HFA aerosol inhaler 2 puff inhalation QID PRN (Reason: shortness of breath or wheezing) Qty: 18 0RF All Day Allergy (cetirizine) 10 mg capsule 10 mg PO QDAY PRN (Reason: allergy symptoms) Qty: 30 0RF sodium chloride [Saline Nasal] 0.65 % aerosol,spray 2 spray intranasal QID Qty: 60 0RF ondansetron 4 mg tablet,disintegrating 4 mg PO Q8H PRN (Reason: nausea and vomiting) Qty: 30 0RF norethindrone ac-eth estradiol [Alex 1.5 (21)] 1.5-30 mg-mcg tablet 1 tab PO QDAY albuterol sulfate [Ventolin HFA] 90 mcg/actuation HFA aerosol inhaler 2 puff inhalation Q6H PRN (Reason: shortness of breath or wheezing) Qty: 8.5 0RF promethazine-DM 6.25-15 mg/5 mL syrup 5 ml PO Q6H PRN (Reason: cough) Qty: 473 0RF loperamide [Imodium A-D] 2 mg capsule 2 mg PO Q6H PRN (Reason: loose stool) Qty: 14 0RF metoclopramide HCl [Reglan] 10 mg tablet 10 mg PO Q6H PRN (Reason: nausea and vomiting) Qty: 30 0RF cefdinir 300 mg capsule 300 mg PO BID Qty: 14 0RF Problem List Clinical Impression: Asthma with exacerbation Patient/Caregiver Discharge Instructions Education Materials: ED Asthma, Acute (Adult) Additional Instructions: Please follow-up with PCP within 24-48 hours and return immediately if symptoms worsen. Print Language: Monegasque Stand Alone Forms: Patient Portal Info Letter PA/CLOTH HAND Supervising Physician PA/CLOTH HAND Supervising Physician: Dr. Trevino
== END 2025-02-10 03:48 | disposition home or self-care (01) ==
LOC: SERX 06:38
PROVIDERS: Emergency Provider Emergency Medicine
DX: J45.901 Unspecified asthma with (acute) exacerbation (principal)
CPT/HCPCS: 94640; 99282; A9270; J1100